=== PATIENT | male | born 1945 | race Caucasian/White ===

== ENCOUNTER 2023-07-28 12:46 | Inpatient (IN) ==
--- NOTE | 2023-07-28 13:14 | Emergency Department Note ---
History of Present Illness General Chief complaint: Dental/Oral Stated complaint: MOUTH INFECTION, REF BY DOC Time Seen by Provider: 07/28/23 12:54 History of Present Illness Maximum Pain Intensity: 10 This is a 78-year-old male with a history of GI bleed, acid reflux presents to the emergency department via private vehicle accompanied by family with complaints of "mouth infection, referred by dentist". Patient notes that his dentist evaluated him today and referred him to the ED for evaluation by OMFS secondary to right lower mouth pain radiating to the face and neck area. There is concern for possibly an impacted/infected wisdom tooth. The patient notes in his current symptoms began this past Thursday. No trauma or injury. He does wear partial dental hardware. No fevers. Current pain 03/03. No known drug allergies. He did start taking amoxicillin yesterday. Home Medications Medication Instructions Recorded Confirmed Type atorvastatin 10 mg tablet 10 mg PO HS 07/28/23 07/28/23 History docusate sodium 100 mg tablet 100 mg PO DAILY 07/28/23 07/28/23 History finasteride 5 mg tablet 5 mg PO DAILY 07/28/23 07/28/23 History pantoprazole 40 mg tablet,delayed 40 mg PO DAILY PRN Constipation 07/28/23 07/28/23 History release Allergies Allergy/AdvReac Type Severity Reaction Status Date / Time No Known Allergies Allergy Verified 07/28/23 14:32 Past Med/Surg History Medical History GERD (gastroesophageal reflux disease) History of peptic ulcer BPH (benign prostatic hyperplasia) Surgical History Neck pain with history of cervical spinal surgery S/P appendectomy S/P cholecystectomy Family History Other Cancer Diabetes Denies family history of Clotting disorder Social History Smoking Status: Never smoker Preferred Language: O[place]i Feels Safe at Home: Yes Review of Systems A total of 10 systems reviewed and were otherwise negative Physical Exam Vital Signs Vital Signs - 24 hr 07/28/23 12:49 07/28/23 15:23 Temperature 36.7 C Temperature Source Temporal Artery Scan Pulse Rate 82 Pulse Rate [Right Finger] 88 Pulse Rhythm [Right Finger] Regular Pulse Strength [Right Finger] Normal Respiratory Rate 18 12 Respiratory Effort / Characteristics Non-Labored Spontaneous Non-Labored Respiratory Depth Normal Normal Blood Pressure 151/85 H Blood Pressure [Right Arm] 135/84 Blood Pressure Mean 107 Blood Pressure Mean [Right Arm] 101 Blood Pressure Position Sitting Pulse Oximetry 92 98 Oxygen Delivery Method Room Air Room Air Sepsis Recent Fever Within 48 Hours No Sepsis New/Unexplained Change in Mental Status No Sepsis Action Taken by Nursing No Action Required VITAL SIGNS - Vital signs and nursing notes were reviewed. Stable and afebrile. GENERAL -78-year-old male appearing his stated age who is in no acute distress. Communicates well with provider and answers questions appropriately. SKIN - Without rashes. HEAD - NC/AT. EYES - PERRL with EOMI bilaterally. Sclera anicteric. EARS - No deformities of external structures noted on gross examination bilaterally. NOSE - Midline and without cyanosis. No epistaxis or purulent drainage noted. MOUTH/OROPHARYNX - Without perioral cyanosis. Buccal mucosa pink and moist and without leukoplakia. Tongue midline with equal elevation of palate bilaterally. No tonsillar hypertrophy, erythema, or exudates noted. Partial dentition noted. There is edema to the intraoral mucosa on the right. There is tenderness overlying the right buccal region extending to the right anterior neck. There is soft tissue fullness noted in the same distribution. NECK - Neck with FROM. Supple to palpation. R anterior cervical lymphadenopathy noted. No nuchal rigidity. LUNGS -CTA CARDIAC - RRR EXTREMITIES +5/5 strength noted in UE/LE bilaterally. NEUROLOGIC - Cranial nerves grossly intact. PSYCH - A&O, and cooperates fully with examiner. Pt is very pleasant and interacts well with examiner. Course Administered Medications Acetaminophen (Acetaminophen 500 Mg Tab) 1,000 mg PO Q8 CIARRA Stop: 08/27/23 14:29 Last Admin: 07/28/23 15:18 Dose: Not Given Documented By: FLAKITO Discontinued Medications Ampicillin Sodium/Sulbactam Sodium 3,000 mg/ Sodium Chloride 100 mls @ 200 mls/hr IV NOW STA Stop: 07/28/23 14:58 Last Admin: 07/28/23 15:05 Dose: 200 mls/hr Documented By: KV Ioversol (Optiray 320 500ml) 92 ml IV ONCE ONE Stop: 07/28/23 14:38 Last Admin: 07/28/23 14:38 Dose: 92 ml Documented By: JT Oxycodone HCl (Oxycodone Hcl Ir 5 Mg Tab (Immediate Release)) 5 mg PO NOW STA Stop: 07/28/23 14:18 Last Admin: 07/28/23 14:46 Dose: 5 mg Documented By: CULLEN Medical Decision Making Laboratory Data 07/28/23 13:50 07/28/23 13:50 Lab Results 07/28/23 Range/Units 13:50 WBC 7.99 (4.8-10.8) K/ul RBC 4.79 (4.70-6.10) M/uL Hgb 14.8 (14.0-18.0) g/dl Hct 44.2 (42.0-52.0) % MCV 92.3 (80.0-100.0) fL MCH 30.9 (25.0-34.0) pg MCHC 33.5 (32.0-36.0) g/dL RDW Std Deviation 45.8 (36.4-46.3) fL RDW Coeff of Elmer 13.3 (11.5-14.5) % Plt Count 246 (130-400) K/uL MPV 10.4 (9.4-12.4) fL Immature Gran % (Auto) 0.3 % Neut % (Auto) 57.8 % Lymph % (Auto) 27.0 % [place] % (Auto) 10.4 % Eos % (Auto) 3.9 % Baso % (Auto) 0.6 % Neut # (Auto) 4.62 (1.40-6.50) K/uL Lymph # (Auto) 2.16 (1.20-3.40) K/uL [place] # (Auto) 0.83 H (0.11-0.59) K/uL Eos # (Auto) 0.31 (0.00-0.50) K/uL Baso # (Auto) 0.05 (0.00-0.20) K/uL Immature Gran # (Auto) 0.02 (0.01-0.20) K/uL Sodium 140 (136-145) mmol/L Potassium 3.8 (3.5-5.1) mmol/L Chloride 105 (98-107) mmol/L Carbon Dioxide 30 (21-32) mmol/L Anion Gap 5 (3-11) BUN 12 (6-23) mg/dl Creatinine 0.74 (0.6-1.4) mg/dl Est Cr Clr Drug Dosing 88.1 ml/min Est GFR ( Amer) 101.7 ml/min Est GFR (Non-Af Amer) 87.7 ml/min BUN/Creatinine Ratio 16.2 (10-20) Glucose 96 (70-99(Fasting)) mg/dl Calcium 9.2 (8.6-10.3) mg/dl Total Bilirubin 1.9 H (0.2-1.0) mg/dl AST 16 (13-39) U/L ALT 19 (7-52) U/L Alkaline Phosphatase 67 (34-104) U/L Total Protein 7.1 (6.0-8.3) gm/dl Albumin 4.0 (3.4-5.0) gm/dl Globulin 3.1 (2.5-4.0) gm/dl Albumin/Globulin Ratio 1.3 (0.9-2) Imaging Data Radiologist's Impression: Soft Tissue Neck CT 07/28/23 13:25 CT soft tissue neck w con CLINICAL HISTORY: R sided oral/facial/neck edema, pain Technique: Axial CT images of the soft tissues of the neck were obtained following intravenous administration of 100 cc of Omnipaque 300. Automated dose lowering techniques and/or adjustment according to patient size were utilized for this exam. Comparison: None available at the time of this dictation. Findings: There are no masses or inflammatory changes seen within the soft tissues of the neck. The oropharynx, hypopharynx, larynx, and trachea are patent. No enlarged lymph nodes are seen. The parotid glands, submandibular glands, and thyroid gland are unremarkable. Imaged portions of the brain parenchyma are unremarkable. The paranasal sinuses and mastoid air cells are normal in appearance. Impression: Mild subcutaneous edema in the right neck without drainable fluid collection or pk lymphadenopathy. ACT 112: Negative or not required by law. Electronically signed by: Juan Oreilly M.D. 07/28/2023 3:01 PM Chest X-Ray 07/28/23 13:30 XR chest 1V portable HISTORY: 78 years-old Male preop preoperative exam. No acute chest complaints COMPARISON: None TECHNIQUE: AP view the chest FINDINGS: Cardiomediastinal and hilar silhouettes are within normal limits. No pneumothorax, pleural effusion or overt pulmonary edema. Moderate hemidiaphragm elevation with bibasilar densities favoring atelectasis. Bones appear grossly intact. IMPRESSION: Mild right hemidiaphragm elevation with bibasilar atelectasis. ACT 112: Negative or not required by law. The above report was generated using voice recognition software. It may contain grammatical, syntax or spelling errors. Electronically signed by: Corona Grimm M.D. 07/28/2023 1:56 PM MDM Narrative Patient was seen and evaluated as above in room D09. Review was performed of triage nursing notes and vital signs. No previous visits for review in the EMR at time of evaluation after obtaining a thorough history and physical examination the above work up was performed. Patient presents to us today for evaluation of right-sided facial pain and swelling that is felt to be of dental origin. He saw his dentist today and was referred here to see OMFS. On evaluation here in the ED the patient does have right-sided facial swelling consistent with infectious etiology. He is maintaining his airway. There is no drooling, stridor, trismus, wheezing or tripoding. Normal phonation. As I was exiting the room following initial evaluation Dr. Rico was already presenting to bedside to evaluate the patient. In discussing options with Dr. Rico as well as the patient plan at this time is admission to the hospital, IV antibiotics and likely surgical intervention to the suspected impacted and infected wisdom tooth on the right during his time here in the hospital. IV Unasyn was ordered. CT soft tissue neck w/ IV contrast was also ordered per discussion with Dr. Rico. Results of the CT scan as above. There is mild right subcutaneous edema in the neck without drainable fluid collection or pk lymphadenopathy. Chest x-ray was ordered as well as EKG on a preoperative basis. Chest x-ray reveals mild right hemidiaphragm elevation with bibasilar atelectasis. EKG reveals normal sinus rhythm with a right bundle branch block. QTc 477. QRS 146. No ST elevation on this rhythm tracing. At this time we will proceed with admission to the hospital. Case discussed with the hospitalist service. Please refer to further documentation regarding his stay. Labs reveal no leukocytosis or concerning anemia. No emergent metabolic disturbance. T. bili elevation at 1.9. GCS: 15 In the evaluation and treatment of this patient, the following differential diagnoses were considered: Periapical Abscess, Osteonecrosis of the Jaw, Dental Fracture, Dental Caries, Sabino's Angina, Vincent's Angina, Facial Cellulitis, among others. Impression & Plan Cellulitis of face, Dental infection, Right facial pain Discharge Plan Visit Data Chief Complaint: Dental/Oral Stated Complaint: MOUTH INFECTION, REF BY DOC ED Provider: Dhiraj Olmedo ED Midlevel Provider: Eliot Johnson Discharge Problem: Cellulitis of face, Dental infection, Right facial pain Patient Disposition: Admitted As Inpatient Condition: Good Forms Stand Alone Forms: My [facility] Prescriptions Prescriptions: No Action atorvastatin 10 mg Tablet 10 mg PO HS pantoprazole 40 mg Tablet,Delayed Release (Dr/Ec) 40 mg PO DAILY PRN (Reason: Constipation) docusate sodium 100 mg Tablet 100 mg PO DAILY finasteride 5 mg Tablet 5 mg PO DAILY Referrals Referrals: PCP,NO [Physician] -
--- NOTE | 2023-07-28 13:30 | History & Physical Report ---
Date of Service July 28, 2023 Assessment & Plan (1) Dental infection: Plan: This is a 78-year-old male with PMH of GERD, history of GI bleed 2/2 to peptic ulcer disease last year, h/o provoked DVT in RUE last year, BPH and other medical problems listed below who presents at the direction of his dentist for worsening mouth infection. Worsening pain and edema on R lower mouth pain radiating to face and neck No respiratory distress or SOB. Saturating at 98% on room air CT soft tissue mild subcutaneous edema in the right neck without drainable fluid collection or pk lymphadenopathy Dr. Rico saw in ED, recommending admission for IV abx, possible OR on , 07/29 Continue IV Unasyn, pain control, soft diet as tolerated Repeat CBC, BMP in AM (2) History of peptic ulcer: (3) GERD (gastroesophageal reflux disease): Plan: Continue PPI. Avoid naids as able in setting of GI bleed in 2022 (4) BPH (benign prostatic hyperplasia): Plan: Continue finasteride. Bladder scan PRN DVT Ppx: SQ heparin for now (should be held evening of 07/28 for possible OR 07/29) Code status: FULL PCP: Dr. Parra of [facility] Dispo: Admitted to [facility] Patient seen in collaboration with Dr. Jaramillo. Please see addendum. I spent a total of 60 minutes coordinating, documenting, and providing care for this patient excluding time spent in the performance of separately billed services. History of Present Illness Chief Complaint: dental infection Primary Care Provider: NO PCP This is a 78-year-old male with PMH of GERD, history of GI bleed 2/2 to peptic ulcer disease last year, h/o provoked DVT in RUE last year, BPH and other medical problems listed below who presents at the direction of his dentist for worsening mouth infection. Patient drives a truck for living and noted worsening pain on the right lower side of his jaw this past Thursday evening. Pain was radiating from his lower molar to the side of his mouth and jaw. Patient called his dentist in [place] who prescribed amoxicillin, which she started yesterday. Pain and swelling continued to progress over the weekend and he was seen in person by his dentist today, who called Dr. Rico and was advised to send the patient to [facility] ED for further evaluation. Per ED provider, Dr. Rico evaluated patient already is recommending IV antibiotics with possible OR on . Patient has been taking some ibuprofen at home due to pain and swelling, which he tries to limit due to history of GI bleed. Pain is currently a 10/10 aching pain. Having some difficulty fully opening his mouth but denies any difficulty swallowing. Unable to chew hard foods due to current swelling and lack of dentition. Denies any shortness of breath. No recent known illness. No fever, chills, lightheadedness, headache, chest pain, shortness of breath, nausea, vomiting, abdominal pain, dysuria, diarrhea or constipation. Allergies Allergy/AdvReac Type Severity Reaction Status Date / Time No Known Allergies Allergy Verified 07/28/23 14:32 Home Medications Medication Instructions Recorded Confirmed Type atorvastatin 10 mg tablet 10 mg PO HS 07/28/23 07/28/23 History docusate sodium 100 mg tablet 100 mg PO DAILY 07/28/23 07/28/23 History finasteride 5 mg tablet 5 mg PO DAILY 07/28/23 07/28/23 History pantoprazole 40 mg tablet,delayed 40 mg PO DAILY PRN Constipation 07/28/23 07/28/23 History release Past Med/Surg History Medical History GERD (gastroesophageal reflux disease) History of peptic ulcer BPH (benign prostatic hyperplasia) Surgical History Neck pain with history of cervical spinal surgery S/P appendectomy S/P cholecystectomy Family History Other Cancer Diabetes Denies family history of Clotting disorder Social History Smoking Status: Never smoker Hx Alcohol Use: No Hx Substance Use: No Preferred Language: Bengali Communication Ability: Effective Stock Checker Required: No Beliefs That Will Affect Care: None Current Living Situation: Spouse and Family Feels Safe at Home: Yes Assistive Devices: None Review of Systems Review of Systems: At least ten systems reviewed and negative except as noted in the HPI. Physical Exam Physical Exam: General Appearance: WD/WN, vitals as above, NAD, sitting up in bed, pleasant, conversing easily Head: normocephalic, atraumatic Eyes: normal inspection, PERRL, conjunctivae normal, anicteric sclerae ENT: external ear and nose normal, + poor dentition, edema and TTP noted intraorally on R buccal region extending to R anterior neck Neck: normal visual inspection, trachea midline, no thyromegaly Respiratory: normal respiratory effort, lungs clear to auscultation, no wheeze, rales, rhonchi. No accessory muscle use Cardiovascular: regular rate, rhythm, no murmur, normal peripheral pulses, no BLE edema. Vessels: no JVD Chest: normal inspection of chest Abdomen/GI: normal bowel sounds, soft, nontender, no hepatosplenomegaly Extremities/Musculoskeletal: no cyanosis or clubbing, extremities motor strength 5/5 Neurologic: PERRL, EOMI, accommodation nl, no face palsy, no dysarthria, CN's II-XI intact bilaterally and moves all extremities Psychiatric: A+Ox3, euthymic affect Skin: no rashes, normal color, warm/dry Results & Data Results & Data Vital Signs (Past 12 Hours) Vital Signs Temp Pulse Resp BP Pulse Ox O2 Del Method 07/28/23 12:49 36.7 C 82 18 151/85 H 92 Room Air Laboratory Results Short CBC 07/28/23 Range/Units 13:50 WBC 7.99 (4.8-10.8) K/ul Hgb 14.8 (14.0-18.0) g/dl Hct 44.2 (42.0-52.0) % Plt Count 246 (130-400) K/uL BMP 07/28/23 13:50 Sodium 140 Potassium 3.8 Chloride 105 Carbon Dioxide 30 BUN 12 Creatinine 0.74 Glucose 96 Calcium 9.2 Liver Function 07/28/23 Range/Units 13:50 Total Bilirubin 1.9 H (0.2-1.0) mg/dl AST 16 (13-39) U/L ALT 19 (7-52) U/L Alkaline Phosphatase 67 (34-104) U/L Albumin 4.0 (3.4-5.0) gm/dl Diagnostic Findings Soft Tissue Neck CT 07/28/23 13:25 CT soft tissue neck w con CLINICAL HISTORY: R sided oral/facial/neck edema, pain Technique: Axial CT images of the soft tissues of the neck were obtained following intravenous administration of 100 cc of Omnipaque 300. Automated dose lowering techniques and/or adjustment according to patient size were utilized for this exam. Comparison: None available at the time of this dictation. Findings: There are no masses or inflammatory changes seen within the soft tissues of the neck. The oropharynx, hypopharynx, larynx, and trachea are patent. No enlarged lymph nodes are seen. The parotid glands, submandibular glands, and thyroid gland are unremarkable. Imaged portions of the brain parenchyma are unremarkable. The paranasal sinuses and mastoid air cells are normal in appearance. Impression: Mild subcutaneous edema in the right neck without drainable fluid collection or pk lymphadenopathy. ACT 112: Negative or not required by law. Electronically signed by: Juan Oreilly M.D. 07/28/2023 3:01 PM Chest X-Ray 07/28/23 13:30 XR chest 1V portable HISTORY: 78 years-old Male preop preoperative exam. No acute chest complaints COMPARISON: None TECHNIQUE: AP view the chest FINDINGS: Cardiomediastinal and hilar silhouettes are within normal limits. No pneumothorax, pleural effusion or overt pulmonary edema. Moderate hemidiaphragm elevation with bibasilar densities favoring atelectasis. Bones appear grossly intact. IMPRESSION: Mild right hemidiaphragm elevation with bibasilar atelectasis. ACT 112: Negative or not required by law. The above report was generated using voice recognition software. It may contain grammatical, syntax or spelling errors. Electronically signed by: Corona Grimm M.D. 07/28/2023 1:56 PM ECG Additional Comments: EKG reviewed, NSR with RBBB Supervising Physician Co-Signing Physician Notes Pt was seen and examined by myself, Jo Ann Jaramillo MD on the day of service. Care was coordinated with Jewell Pedraza PA-C. 78Tree who failed outpt po meds for a dental infection. On exam, alert and oriented, no acute distress. Vitals stable, no signs of sepsis. Able to open jaw, face tender to palaption on right. IV abx, pain control, further evaluation by oromax surgeon. Appreciate recs. Otherwise as above. I spent a total [id number] coordinating, documenting, and providing care for this patient excluding time spent in the performance of separately billed services
--- NOTE | 2023-07-28 13:57 | XRay Report ---
XR chest 1V portable HISTORY: 78 years-old Male preop preoperative exam. No acute chest complaints COMPARISON: None TECHNIQUE: AP view the chest FINDINGS: Cardiomediastinal and hilar silhouettes are within normal limits. No pneumothorax, pleural effusion o r overt pulmonary edema. Moderate hemidiaphragm elevation with bibasilar densities favoring atelectas is. Bones appear grossly intact. IMPRESSION: Mild right hemidiaphragm elevation with bibasilar atelectasis. ACT 112: Negative or not required by law. The above report was generated using voice recognition software. It may contain grammatical, syntax o r spelling errors. Electronically signed by: Corona Grimm M.D. 07/28/2023 1:56 PM
[2023-07-28 14:06] LABS: Basophils # (auto) 0.05 K/uL (0.00-0.20); Basophils % (auto) 0.6 %; Eosinophils # (auto) 0.31 K/uL (0.00-0.50); Eosinophils % (auto) 3.9 %; Hematocrit (blood only) 44.2 % (42.0-52.0); Hemoglobin 14.8 g/dl (14.0-18.0); Immature Granulocytes # (auto) 0.02 K/uL (0.01-0.20); Immature Granulocytes % (auto) 0.3 %; Lymphocytes # (auto) 2.16 K/uL (1.20-3.40); Mean Corpuscular Hemoglobin 30.9 pg (25.0-34.0); Mean Corpuscular Hgb Conc 33.5 g/dL (32.0-36.0); Mean Corpuscular Volume 92.3 fL (80.0-100.0); Mean Platelet Volume 10.4 fL (9.4-12.4); Monocytes # (auto) 0.83 K/uL (0.11-0.59); Monocytes % (auto) 10.4 %; Neutrophils # (auto) 4.62 K/uL (1.40-6.50); Neutrophils % (auto) 57.8 %; Platelet Count 246 K/uL (130-400); RDW Coefficient of Variation 13.3 % (11.5-14.5); RDW Standard Deviation 45.8 fL (36.4-46.3); Red Blood Count 4.79 M/uL (4.70-6.10); White Blood Count 7.99 K/ul (4.8-10.8)
[2023-07-28 14:23] LABS: Albumin Globulin Ratio 1.3 (0.9-2); BUN Creatinine Ratio 16.2 (10-20); Bilirubin,Total 1.9 mg/dl (0.2-1.0); Calcium 9.2 mg/dl (8.6-10.3); Creatinine Clr Calc Pharmacy 88.1 ml/min; Est GFR (African American) 101.7 ml/min; Est GFR (Non-African American) 87.7 ml/min; Globulin 3.1 gm/dl (2.5-4.0); Potassium 3.8 mmol/L (3.5-5.1); Total Protein 7.1 gm/dl (6.0-8.3)
[2023-07-28] MEDS: OPTIRAY 320 500ml IV ONE (14:38)
[2023-07-28] MEDS: ACETAMINOPHEN 500 MG TAB PO SCH (14:45)
[2023-07-28] MEDS: oxyCODONE HCL IR 5 MG TAB (IMMEDIATE RELEASE) PO STA (14:46)
--- NOTE | 2023-07-28 15:02 | CT Scan Report ---
CT soft tissue neck w con CLINICAL HISTORY: R sided oral/facial/neck edema, pain Technique: Axial CT images of the soft tissues of the neck were obtained following intravenous admini stration of 100 cc of Omnipaque 300. Automated dose lowering techniques and/or adjustment according t o patient size were utilized for this exam. Comparison: None available at the time of this dictation. Findings: There are no masses or inflammatory changes seen within the soft tissues of the neck. The oropharynx, hypopharynx, larynx, and trachea are patent. No enlarged lymph nodes are seen. The parotid glands, s ubmandibular glands, and thyroid gland are unremarkable. Imaged portions of the brain parenchyma are unremarkable. The paranasal sinuses and mastoid air cell s are normal in appearance. Impression: Mild subcutaneous edema in the right neck without drainable fluid collection or pk lymphadenopathy . ACT 112: Negative or not required by law. Electronically signed by: Juan Oreilly M.D. 07/28/2023 3:01 PM
[2023-07-28] MEDS: AMPICILLIN/SULBACTAM SOD 3,000 MG in SODIUM CHLOR 0.9% MINI-B 100 ML IV STA (15:05)
--- NOTE | 2023-07-28 15:07 | Electrocardiogram Report ---
Test Reason : Blood Pressure : / mmHG Vent. Rate : 076 BPM Atrial Rate : 076 BPM P-R Int : 160 ms QRS Dur : 146 ms QT Int : 424 ms P-R-T Axes : 041 081 029 degrees QTc Int : 477 ms Normal sinus rhythm Right bundle branch block Abnormal ECG No previous ECGs available Confirmed by Slaav Newton ([id number]) on 07/28/2023 3:07:25 PM Referred By: REFERRED SELF Confirmed By:Slava Newton
[2023-07-28] MEDS ORDERED: ONDANSETRON INJ 2 MG/ML 2 ML VIAL IV PRN (16:03)
[2023-07-28] MEDS ORDERED: POLYETHYLENE (MIRALAX) 17 GM PACK PO PRN (16:03)
[2023-07-28] MEDS ORDERED: PANTOprazole 40 MG TAB PO PRN (16:03)
[2023-07-28] MEDS ORDERED: DOCUSATE SODIUM 100 MG CAP PO PRN (16:07)
[2023-07-28] MEDS: traMADol HCL 50 MG TABLET PO PRN (17:54)
--- NOTE | 2023-07-28 18:13 | Oral/Maxillofacial Consult ---
Date of Consultation July 28, 2023 Assessment & Plan (1) Dental infection: (2) Impacted third molar tooth: (3) Gum abscess: (4) Submandibular abscess: (5) Trismus: History of Present Illness Reason for Consultation: acute facial pain/swelling right side Attending Physician: Jo Ann Jaramillo MD History of Present Illness Oral Maxillofacial Surgery Exam in ER Present Complaint: I have pain/swelling/drainage from my infected wisdom teeth # 32 Symptoms have been ongoing for a while--pain and swelling started July 23, getting worse not able to open mouth. Was prescribed amoxicillin by Dr Nunn (dentist) no improvement --pain,swelling worse. Dr Nunn evaluated to --not able to open mouth---he was able to remove the partial denture but not able to obtain X Rays. Patient not able to eat since Thursday. Hard lump in the right cheek and mucobuccal fold Oral Exam: Finding--Very limited opening there is P-cor associated with the impacted teeth, tender gingival tissue, boggy soft tissue with posterior ridge expansion # 32 is in a very abnormal position and removal is clinical indicated. Imaging: The radiologist did not report on the pathology in the lower right jaw. The CT scan was reviewed by me , there were no abnormal findings other then the impacted/malposed wisdom tooth, noted right neck edema, radiolucent area surround the impacted tooth, the cortical bone plate in the tongue side is broken which is the etiology of the current infection in the floor of the mouth and submandibular area. The TMJ are well positioned and no evidence of bony pathology. The sinus, supporting bone all WNL Evaluated the nerve/sinus relationship to the roots of the impacted # 32. The maxilla is very atrophic. The following teeth were impacted #32 Soft tissue: The floor of the mouth right side is swollen, the mandibular space is swollen which accounts for the trismus. The tongue, hard/soft palate, posterior pharyngeal area all with in normal limits, no pathology or abnormal findings noted. No lesions noted that require follow up or Bx. Oral Care: Overall oral care is good -atrophic upper jaw, a few teeth remain in the lower TMJ exam: no able to examine due to limited opening secondary to infection Head/Neck exam: Neck is supple, FROM, Able to extend and flex neck w/o difficulty, no airway issues, no evidence of sleep apnea. There is a mass secondary to the current facial infection , no other abnormalities Treatment Plan: Admission to medical for IV therapy, soft diet, pain control, IV antibiotics. Failed out patient management of the facial infection Set up with general anesthesia in hospital due to complexity of the procedure of draining the subperiosteal infection and removal of the difficult horizontally impacted wisdom tooth #32. I reviewed the treatment plan and consent with the patient, his and daughter, I will evaluate Umberto tomorrow AM and determine if he is ready to have the infection drained and the grossly abscessed impacted # 32 removed tomorrow vs . Understanding was expressed. Time was given for questions regarding the surgery, risks and post op care. Discussed alternative to treatment--procedure as planned as there are no options as I&D and removal of # 32 are necessary The wisdom tooth # 32 is impacted and in an abnormal position, removal is indicated and medically necessary. Risks discussed: Bleeding,Pain,swelling,infection, dry socket, delayed healing, nerve injury to face,lips,tongue,chin area which could be permanent (rare). TMJ, jaw stiffness, change in bite (rare), ear pain (referred). Sinus problems like fistula or infection. Need to leave a small root fragment in place to avoid injury to nerve or sinus. Relationship of wisdom teeth to nerve/sinus and risk of jaw fracture. Home care reviewed: tooth brushing, rinsing, follow up care with Dr Rico. diet=[id number] dental. Discussed activity level, driving/work while on Rx pain Meds. Surgery to be set up once July 29 or in OR. Allergies Allergy/AdvReac Type Severity Reaction Status Date / Time No Known Allergies Allergy Verified 07/28/23 14:32 Home Medications Medication Instructions Recorded Confirmed Type atorvastatin 10 mg tablet 10 mg PO HS 07/28/23 07/28/23 History docusate sodium 100 mg tablet 100 mg PO DAILY 07/28/23 07/28/23 History finasteride 5 mg tablet 5 mg PO DAILY 07/28/23 07/28/23 History pantoprazole 40 mg tablet,delayed 40 mg PO DAILY PRN Constipation 07/28/23 07/28/23 History release Patient History Medical History GERD (gastroesophageal reflux disease) History of peptic ulcer BPH (benign prostatic hyperplasia) Surgical History Neck pain with history of cervical spinal surgery S/P appendectomy S/P cholecystectomy Family History Other Cancer Diabetes Denies family history of Clotting disorder Social History Smoking Status: Never smoker Hx Alcohol Use: No Hx Substance Use: No Preferred Language: Greek Communication Ability: Effective Material Expeditor Required: No Beliefs That Will Affect Care: None Current Living Situation: Spouse and Family Other Information That Helps Us Care for You: No Feels Safe at Home: Yes Safety Concerns: Feels Safe At This Time Assistive Devices: Denture - Upper, Denture - Lower, Glasses and Hearing Aid - Bilateral Review of Systems Review of Systems: General Appearance: WD/WN, vitals as above, NAD, sitting up in bed, pleasant, conversing easily Head: normocephalic, atraumatic Eyes: normal inspection, PERRL, conjunctivae normal, anicteric sclerae ENT: external ear and nose normal, + poor dentition, edema and TTP noted intraorally on R buccal region extending to R anterior neck Neck: normal visual inspection, trachea midline, no thyromegaly Respiratory: normal respiratory effort, lungs clear to auscultation, no wheeze, rales, rhonchi. No accessory muscle use Cardiovascular: regular rate, rhythm, no murmur, normal peripheral pulses, no BLE edema. Vessels: no JVD Chest: normal inspection of chest Abdomen/GI: normal bowel sounds, soft, nontender, no hepatosplenomegaly Extremities/Musculoskeletal: no cyanosis or clubbing, extremities motor strength 5/5 Neurologic: PERRL, EOMI, accommodation nl, no face palsy, no dysarthria, CN's II-XI intact bilaterally and moves all extremities Psychiatric: A+Ox3, euthymic affect Skin: no rashes, normal color, warm/dry Results & Data Vital Signs (Past 12 Hours) Vital Signs Temp Pulse Pulse Resp BP BP Pulse Ox 07/28/23 16:09 37.1 C 84 18 141/91 H 95 07/28/23 15:42 85 03/05/24 15:23 88 12 135/84 98 07/28/23 12:49 36.7 C 82 18 151/85 H 92 O2 Del Method 07/28/23 16:09 Room Air 07/28/23 15:42 07/28/23 15:23 Room Air 07/28/23 12:49 Room Air PG Care Time/CCT Total # of Minutes Spent Total Time Spent with Patient: Total time spent is greater than 50% in coordination of care (as documented) at patient's floor/unit and/or counseling patient: Coding Level of Care Code 65740 OFFICE CONSULT LVL Diagnoses Dental infection K04.7 Impacted third molar tooth K01.1 Gum abscess K05.219 Submandibular abscess K12.2 Trismus R25.2
[2023-07-28] MEDS: HYDROmorphone INJ 0.5 MG/0.5 ML SYR IV PRN (19:33)
[2023-07-28] MEDS: AMPICILLIN/SULBACTAM SOD 3,000 MG in SODIUM CHLOR 0.9% MINI-B 100 ML IV SCH (21:59)
[2023-07-28] MEDS: ATORVASTATIN 10 MG TAB PO SCH (21:59)
[2023-07-28] MEDS: HEPARIN SOD 5,000 UNIT/0.5 ML VIAL SQ SCH (21:59)
[2023-07-29 06:30] LABS: BUN Creatinine Ratio 18.8 (10-20); Calcium 8.9 mg/dl (8.6-10.3); Creatinine Clr Calc Pharmacy 70.5 ml/min; Est GFR (African American) 96.1 ml/min; Est GFR (Non-African American) 82.9 ml/min
[2023-07-29 06:41] LABS: Hematocrit (blood only) 39.3 % (42.0-52.0); Hemoglobin 13.6 g/dl (14.0-18.0); Mean Corpuscular Hemoglobin 31.1 pg (25.0-34.0); Mean Corpuscular Hgb Conc 34.6 g/dL (32.0-36.0); Mean Corpuscular Volume 89.7 fL (80.0-100.0); Mean Platelet Volume 10.9 fL (9.4-12.4); Platelet Count 244 K/uL (130-400); RDW Coefficient of Variation 13.2 % (11.5-14.5); RDW Standard Deviation 43.8 fL (36.4-46.3); Red Blood Count 4.38 M/uL (4.70-6.10); White Blood Count 6.43 K/ul (4.8-10.8)
[2023-07-29] MEDS: FINASTERIDE 5 MG TAB PO SCH (08:08)
--- NOTE | 2023-07-29 09:41 | Oral/Maxillofacial Progress Nt ---
Date of Service July 29, 2023 Assessment & Plan Admission and Anticipated Discharge Date Admission Date: July 28, 2023 Subjective Pain, swelling and drainage I visited Umberto in room 289--he is still is Pain with swelling and now is starting to drain pus I&D will be set up KHOI this afternoon in OR with GA Treatment Plan Set up with general anesthesia in hospital this afternoon I&D right mandibular space abscess and removal of the impacted # 32 Consent signed NPO No medical issues noted I reviewed the treatment plan and consent with Umberto Understanding was expressed. Time was given for questions regarding the surgery, risks and post op care. Discussed alternative to treatment--NONE I&D and tooth removal medically necessary--MUST DO BOTH The wisdom #32 impacted wisdom tooth and infection I&D and removal is indicated and medically necessary. Risks discussed: Bleeding,Pain,swelling,infection, dry socket, delayed healing, nerve injury to face,lips,tongue,chin area which could be permanent (rare). TMJ, jaw stiffness, change in bite (rare), ear pain (referred). Sinus problems like fistula or infection. Need to leave a small root fragment in place to avoid injury to nerve or sinus. Relationship of wisdom teeth to nerve/sinus and risk of jaw fracture. Home care reviewed: follow up care with Dr Rico. diet=[id number] dental. Discussed activity level, driving/work while on Rx pain Meds. Surgery to be set up this afternoon NPO Results & Data Vital Signs (Past 12 Hours) Vital Signs Temp Pulse Pulse Resp BP Pulse Ox O2 Del Method 07/29/23 07:49 36.8 C 77 18 129/83 94 Room Air 07/29/23 05:58 63 07/29/23 04:06 36.6 C 71 20 121/77 93 Room Air 07/28/23 23:34 36.9 C 81 20 122/79 93 Room Air 07/28/23 22:40 87 PG Care Time/CCT Total # of Minutes Spent Total Time Spent with Patient: Total time spent is greater than 50% in coordination of care (as documented) at patient's floor/unit and/or counseling patient: Coding Level of Care Code None
--- NOTE | 2023-07-29 10:29 | Anesthesiology Consultation ---
Date of Service July 29, 2023 Assessment & Plan (1) Encounter for pre-operative examination: Chart Review Chart Review: Acceptable Risk for Surgery and Patient NOT seen in Pre Admission Testing Consults Requested none History Surgery Operation Date: 07/29/23 07:00 Proposed Procedures p Right Incision and Drainage, Tooth Removal x1 - Shabbir Rico, DMD Height/Weight Height: 5 ft 9 in Weight: 84 kg Allergies Allergy/AdvReac Type Severity Reaction Status Date / Time No Known Allergies Allergy Verified 07/28/23 14:32 Medications Home Medications Medication Instructions Recorded Confirmed Last Taken atorvastatin 10 mg tablet 10 mg PO HS 07/28/23 07/28/23 Unknown docusate sodium 100 mg tablet 100 mg PO DAILY 07/28/23 07/28/23 Unknown finasteride 5 mg tablet 5 mg PO DAILY 07/28/23 07/28/23 Unknown pantoprazole 40 mg tablet,delayed 40 mg PO DAILY PRN Constipation 07/28/23 07/28/23 Unknown release Active Medications Generic Name Dose Route Start Last Admin Trade Name Freq PRN Reason Stop Dose Admin Acetaminophen 1,000 mg 07/28/23 14:30 07/29/23 05:07 Acetaminophen 500 Mg Tab PO 08/27/23 14:29 1,000 mg Q8 CIARRA Administration Atorvastatin Calcium 10 mg 07/28/23 21:00 07/28/23 21:59 Atorvastatin 10 Mg Tab PO 08/27/23 20:59 10 mg HS CIARRA Administration Finasteride 5 mg 07/29/23 09:00 07/29/23 08:08 Finasteride 5 Mg Tab PO 08/28/23 08:59 Not Given DAILY CIARRA Heparin Sodium (Porcine) 5,000 units 07/28/23 22:00 07/29/23 05:14 Heparin Sod 5,000 Unit/0.5 Ml Vial SQ 08/27/23 21:59 5,000 units Q8 CIARRA Administration Hydromorphone HCl 0.25 mg 07/28/23 18:01 07/28/23 19:33 Hydromorphone Inj 0.5 Mg/0.5 Ml Syr IV 08/11/23 18:00 0.25 mg Q6H PRN Administration Mod-Sev Pain (Scale 4-10) Ampicillin Sodium/Sulbactam 100 mls @ 100 mls/hr 07/28/23 21:00 07/29/23 09:11 Sodium 3,000 mg/ Sodium IV 08/07/23 20:59 Infused Chloride Q6H CIARRA Infusion Tramadol HCl 50 mg 07/28/23 16:03 07/28/23 17:54 Tramadol Hcl 50 Mg Tablet PO 08/27/23 16:02 50 mg Q4H PRN Administration Severe Pain (Scale 7, 8, 9,10) Past Medical History Medical History GERD (gastroesophageal reflux disease) History of peptic ulcer BPH (benign prostatic hyperplasia) Past Family History Family History Other Cancer Diabetes Denies family history of Clotting disorder Past Surgical History Surgical History Neck pain with history of cervical spinal surgery S/P appendectomy S/P cholecystectomy Social History Smoking Status: Never smoker Hx Alcohol Use: No Hx Substance Use: No Physical Exam Vital Signs Last Vital Signs Temp 98.2 F 07/29/23 07:49 Pulse 77 07/29/23 07:49 Resp 18 07/29/23 07:49 BP 129/83 07/29/23 07:49 Pulse Ox 94 07/29/23 07:49 O2 Del Method Room Air 07/29/23 07:49 Testing Laboratory Results 07/29/23 05:36 07/29/23 05:36 Electrocardiogram Date: 07/28/23 Findings: + NSR @ and + RBBB
--- NOTE | 2023-07-29 11:42 | Hospitalist Progress Note ---
Date of Service July 29, 2023 Assessment & Plan (1) Dental infection: (2) History of peptic ulcer: (3) GERD (gastroesophageal reflux disease): (4) BPH (benign prostatic hyperplasia): Plan This is a 78-year-old male with PMH significant for GERD, history of GI bleed 2/2 to peptic ulcer disease last year, h/o provoked DVT in RUE last year, BPH who presents at the direction of his dentist for worsening mouth infection. Dental Abscess Worsening pain and edema on R lower mouth pain radiating to face and neck No respiratory distress or SOB. Saturating at 98% on room air CT soft tissue mild subcutaneous edema in the right neck without drainable fluid collection or pk lymphadenopathy Dr. Rico saw in ED, recommending admission for IV abx -s/p I&D right mandibular space abscess and removal of the impacted # 32 on 07/29 Continue IV Unasyn, pain control, soft diet as tolerated Monitoring overnight Anemia hgb decreased slightly from 14.8 to 13.6 Continue to monitor with AM labs Hyperglycemia Pending AM [id number] Elevated bilirubin t bili of 1.9 Trend with CMP History of peptic ulcer GERD (gastroesophageal reflux disease) Continue PPI. Avoid nsaids as able in setting of GI bleed in 2022 BPH (benign prostatic hyperplasia) Continue finasteride. Bladder scan PRN DVT Ppx: SQ heparin Code status: FULL PCP: Dr. Parra of [facility] Dispo: Home post op Admission and Anticipated Discharge Date Admission Date: July 28, 2023 Subjective Pt was seen laying in bed. In pain, states that he was seen by oromax surgeon and plans for surgery moved up. Otherwise denied concerns, playing games on his phone. Review of Systems Review of Systems: All systems reviewed & are unremarkable except as noted in Subjective Physical Exam Physical Exam: General: Alert, oriented. No acute distress Skin: No noted rashes or bruises Psych: Appropriate mood and affect Neuro: No gross deficits HEENT: NC/AT, tender to palpation of right cheek area Chest: Nontender to palpation. CV: RRR Resp: Breath sounds clear bilaterally, no increased effort of breathing. Abdomen: Soft, nontender, nondistended. Extremities: No edema in lower extremities bilaterally. Results & Data Results & Data Vital Signs (Past 12 Hours) Vital Signs Temp Pulse Pulse Resp BP Pulse Ox O2 Del Method 07/29/23 07:49 36.8 C 77 18 129/83 94 Room Air 07/29/23 05:58 63 07/29/23 04:06 36.6 C 71 20 121/77 93 Room Air
[2023-07-29] MEDS ORDERED: ePHEDrine sulfate 50 MG/ML AMP IV PRN (16:55)
[2023-07-29] MEDS ORDERED: ATROPINE SULFATE 0.1 MG/ML 10ML SYR IV PRN (16:55)
[2023-07-29] MEDS ORDERED: DEXAMETHASONE SOD INJ 4 MG/ML VIAL ONE (16:57)
[2023-07-29] MEDS ORDERED: LIDOCAINE 2% 2 ML VIAL/AMP(20MG/ML) INFIL ONE (16:57)
[2023-07-29] MEDS ORDERED: ROCURONIUM BROMIDE 10 MG/ML 5 ML VIAL IV ONE (16:57)
[2023-07-29] MEDS ORDERED: PROPOFOL IV EMULSION 10 MG/ML 20 ML VIAL IV ONE (16:57)
[2023-07-29] MEDS ORDERED: ONDANSETRON INJ 2 MG/ML 2 ML VIAL ONE (16:57)
[2023-07-29] MEDS ORDERED: MIDAZOLAM HCL 1 MG/ML 2ML VIAL ONE (16:58)
[2023-07-29] MEDS ORDERED: fentaNYL citrate PF 100 MCG/2 ML VIAL ONE (16:58)
--- NOTE | 2023-07-29 16:59 | History & Physical Bridge Note ---
Date of Service July 29, 2023 History & Physical Bridge Note I have examined the patient, reviewed the History & Physical and in the interval since the performance of the History & Physical I have noted the following changes of clinical significance: no changes noted OK for the planned procedure--I&D and removal of # 32 (right)
[2023-07-29] MEDS: CHLORHEXIDINE GLUCONATE 0.12% 480 ML MT PRN (17:58)
[2023-07-29] MEDS: SURGICEL ABSORB HEMOSTAT 2IN X 14IN TOP ONE (17:59)
[2023-07-29] MEDS ORDERED: GLYCOPYRROLATE 0.2 MG/ML VIAL ONE (18:13)
[2023-07-29] MEDS ORDERED: NEOSTIGMINE METHYLSULFATE 1 MG/ML 10ML VIAL ONE (18:13)
[2023-07-29] MEDS: fentaNYL citrate PF 100 MCG/2 ML VIAL IV PRN (18:30)
--- NOTE | 2023-07-29 18:39 | Operative Report ---
PG Post Operative Report Pre & Post Diagnosis Operation Date: 07/29/23 07:00 <No data on this case meets the specified criteria> I identified the patient and participated in the time-out.: Yes Procedure Operation Date: 07/29/23 07:00 <No data on this case meets the specified criteria> Surgeon Shabbir Rico DMD Manager Food Safety none Estimated Blood Loss 5 Findings Consistent with Post-Op Diagnosis acute infection mandibular space infection, infected # 32 with cyst and infected tissue surrounding the tooth Specimens C&S from mandibular space abscess Cystic and granulation tissue associated with # 32 Anesthesia Type General Complications none Disposition Accompanied Patient To Recovery: Yes Description of Procedure Actual Procedures p Incision and Drainage mandibular space Right side Abscess; Removal of impacted Tooth #32(Not Applicable) - Shabbir Rico DMD Dental infection K04.7 Impacted third molar tooth K01.1 Gum abscess K05.219 Submandibular abscess K12.2 Trismus R25.2 CPT 96979 Incision and Drainage right acute infection mandibular space infection/masticatory space D7240 Removal of deep impacted infected retained wisdom tooth # 32 Once cleared for surgery general anesthesia was achieved, the eyes were protected by the anesthesia dept criteria. A time out was take for patient ID, antibiotics, equipment and position verification once all agreed the procedure began. Local anesthesia using Marcaine with a vasoconstrictor ( 1.8 ml per site) given into right inferior alveolar nerve A throat pack was placed after the oral cavity was irrigated with saline. Once a surgical level of anesthesia was obtained and the local anesthesia was given time for the blocks the surgery was started. I turned my attention to the infection which was located in the floor of the mouth, subperiosteal area and mandibular space area. There was swelling associated with the impacted tooth # 32 Incision and Drainage right acute infection mandibular space infection Using a 15 blade an incision was made on right the alveolar ridge and lateral to the duct of the submandibular gland and lingual nerve. Once the incision was made a lot of pus extruded from the site. This drainage was cultured for anaerobic and aerobic bacteria. A curved hemostat was carefully placed into the infected space along the medial side of the lower jaw and into the mandibular space. Some further drainage was now allowed to escape. I palpated the cheek and subperiosteal area and no further drainage was expressed. The area was irrigated with at least 100 ml of NS solution. I now turned my attention to remove the impacted and infected impacted wisdom tooth # 32. Difficult Lower wisdom teeth CBI # 32 infected # 32 with cyst and infected tissue surrounding the tooth (D7240 x 1) The patient is 78 years old and presented with a horizontal impacted wisdom tooth with internal resorption. As a result the failing tooth caused a rather extensive oral facial infection, pain, swelling and trismus. This necessitated a hospital admission for IV antibiotics and subsequent removal of # 32. The full thick Muco-periosteal flap was retracted to expose the lingual plate of bone and the external oblique ridge to avoid the lingual nerve. The flap was reflected to expose the impacted tooth. The tooth was horizontally impacted with a lot of infected cyst like material and granulation tissue surrounding the exposed sections of the tooth. This soft tissue was curetted and sent of pathology. The drill with a round bur was used to remove bone, a fissure bur was used to split the tooth.The lingual plate was protected. The tooth was removed with a 301 elevator, the nerve was intact, there was no bleeding. The bone was trimmed, smoothed and the large flap was closed with a 2-0 chromic sutures. When all the # 32 wisdom teeth was removed I inspected the sites to insure all bleeding was controlled. I removed the throat pack and suctioned the throat. A gauze pressure dressings was placed. All instrument and sponge count was correct. The patient was allowed to awake from the anesthesia. Once full awake the anesthesia tube was removed and the patient was taken to the recovery room with all vital sign stable. The patient tolerated the surgery very well. I will follow the patient while in the hospital and then once discharged in my office, Rx and instructions will be given upon discharge. I attest to the content of the Intraoperative Record and any orders documented therein. Any exceptions are noted below.
[2023-07-29] MEDS: ONDANSETRON INJ 2 MG/ML 2 ML VIAL IV PRN (18:57)
[2023-07-29] MEDS: KETOROLAC TROMETHAMINE 15 MG/ML VIAL IV ONE ×2 (18:58→21:06)
[2023-07-29] MEDS: ACETAMINOPHEN 1,000 MG/100 ML VIAL IV STA (18:58)
[2023-07-29] MEDS: KETOROLAC 30 MG/ML VIAL ONE (19:08)
--- NOTE | 2023-07-29 19:09 | Anesthesiology Progress Note ---
Date of Service July 29, 2023 Anesthesia Post Procedure Vital Signs Vital Signs: Temp Pulse Pulse Pulse Resp BP Pulse Ox 07/29/23 18:55 91 H 24 164/95 H 97 07/29/23 18:45 71 15 158/99 H 96 07/29/23 18:35 84 21 160/95 H 96 07/29/23 18:25 36.4 C L 88 16 135/96 97 07/29/23 16:29 37.3 C 83 15 145/89 H 96 07/29/23 15:54 36.6 C 87 18 122/81 98 07/29/23 14:01 86 07/29/23 12:02 36.8 C 71 18 130/84 91 07/29/23 07:49 36.8 C 77 18 129/83 94 07/29/23 05:58 63 07/29/23 04:06 36.6 C 71 20 121/77 93 07/28/23 23:34 36.9 C 81 20 122/79 93 07/28/23 22:40 87 07/28/23 20:15 36.9 C 83 20 133/80 93 O2 Del Method O2 Flow Rate 07/29/23 18:55 Nasal Cannula 2 07/29/23 18:45 Nasal Cannula 2 07/29/23 18:35 Nasal Cannula 2 07/29/23 18:25 Nasal Cannula 2 07/29/23 16:29 Room Air 07/29/23 15:54 Room Air 07/29/23 14:01 07/29/23 12:02 Room Air 07/29/23 07:49 Room Air 07/29/23 05:58 07/29/23 04:06 Room Air 07/28/23 23:34 Room Air 07/28/23 22:40 07/28/23 20:15 Room Air Pain Intensity Right Lateral Neck: Pain Intensity: 10 Right Jaw: Pain Intensity: 10 Transfer of Care Handoff Completed per policy Notes Mental Status: alert / awake / arousable Patient Amnestic to Procedure: Yes Nausea / Vomiting: adequately controlled Pain: adequately controlled Airway Patency, RR, SpO2: stable & adequate BP & HR: stable & adequate Hydration State: stable & adequate Anesthetic Complications: no major complications apparent and Pt Satisfied with anesthetic care
[2023-07-29] MEDS: BUPIVACAINE/EPINEPHRINE 0.5% 1:200,000 1.8 ML CARP ONE (19:47)
[2023-07-30] MEDS: ACETAMINOPHEN 1,000 MG/100 ML VIAL IV PRN (05:12)
[2023-07-30 06:04] LABS: Basophils # (auto) 0.01 K/uL (0.00-0.20); Basophils % (auto) 0.1 %; Eosinophils # (auto) 0.01 K/uL (0.00-0.50); Eosinophils % (auto) 0.1 %; Hematocrit (blood only) 42.4 % (42.0-52.0); Hemoglobin 14.4 g/dl (14.0-18.0); Immature Granulocytes # (auto) 0.04 K/uL (0.01-0.20); Immature Granulocytes % (auto) 0.5 %; Lymphocytes % (auto) 8.4 %; Mean Corpuscular Hemoglobin 31.2 pg (25.0-34.0); Mean Corpuscular Volume 91.8 fL (80.0-100.0); Mean Platelet Volume 10.5 fL (9.4-12.4); Monocytes # (auto) 0.48 K/uL (0.11-0.59); Monocytes % (auto) 5.8 %; Neutrophils # (auto) 7.09 K/uL (1.40-6.50); Neutrophils % (auto) 85.1 %; Platelet Count 281 K/uL (130-400); RDW Standard Deviation 43.6 fL (36.4-46.3); Red Blood Count 4.62 M/uL (4.70-6.10); White Blood Count 8.33 K/ul (4.8-10.8)
[2023-07-30 06:20] LABS: Albumin Globulin Ratio 1.2 (0.9-2); Albumin Level 3.5 gm/dl (3.4-5.0); BUN Creatinine Ratio 20.4 (10-20); Bilirubin,Total 1.1 mg/dl (0.2-1.0); Calcium 9.1 mg/dl (8.6-10.3); Creatinine Clr Calc Pharmacy 61.1 ml/min; Est GFR (African American) 84.6 ml/min; Globulin 2.9 gm/dl (2.5-4.0); Phosphorus 3.8 mg/dl (2.5-4.9); Potassium 4.2 mmol/L (3.5-5.1); Total Protein 6.4 gm/dl (6.0-8.3)
[2023-07-30 07:01] LABS: Estimated Average Glucose 131 mg/dl; Hemoglobin A1C 6.2 % (4.5-5.6)
--- NOTE | 2023-07-30 15:41 | Oral/Maxillofacial Progress Nt ---
Date of Service July 30, 2023 Assessment & Plan Admission and Anticipated Discharge Date Admission Date: July 28, 2023 Subjective POST OP NOTE at 24 hours The patient did very well post operatively, minimal swelling, no drainage. Surgical and I&D site look good Tissue tone =healthy normal tissue No sinus or nerve complications noted Excellent ROM Sutures in place. Still very uncomfortable and in pain--I feel that this will slowly subside over the next 24-36 hours. Suggest massage and good oral care. Reviewed oral care Reviewed diet, massage, exercise and continued home/oral care I feel that Umberto can be discharged tomorrow morning on Augmentin and Pain Meds I will see him in my office in 10-14 day for follow up. August 12 at 11 am Great response from recent I&D and oral surgery Results & Data Vital Signs (Past 12 Hours) Vital Signs Temp Pulse Pulse Resp BP BP Pulse Ox 07/30/23 15:19 81 07/30/23 11:57 36.8 C 109 H 18 154/86 H 95 07/30/23 08:07 36.7 C 87 18 121/73 91 07/30/23 06:02 88 07/30/23 03:41 36.7 C 86 18 114/75 91 O2 Del Method 07/30/23 15:19 07/30/23 11:57 Room Air 07/30/23 08:07 Room Air 07/30/23 06:02 07/30/23 03:41 Room Air PG Care Time/CCT Total # of Minutes Spent Total Time Spent with Patient: Total time spent is greater than 50% in coordination of care (as documented) at patient's floor/unit and/or counseling patient: Coding Level of Care Code None
--- NOTE | 2023-07-30 22:38 | Hospitalist Progress Note ---
Date of Service July 30, 2023 Assessment & Plan (1) Dental infection: (2) History of peptic ulcer: (3) GERD (gastroesophageal reflux disease): (4) BPH (benign prostatic hyperplasia): Plan This is a 78-year-old male with PMH significant for GERD, history of GI bleed 2/2 to peptic ulcer disease last year, h/o provoked DVT in RUE last year, BPH who presents at the direction of his dentist for worsening mouth infection. Dental Abscess Worsening pain and edema on R lower mouth pain radiating to face and neck No respiratory distress or SOB. Saturating at 98% on room air CT soft tissue mild subcutaneous edema in the right neck without drainable fluid collection or pk lymphadenopathy Dr. Rico saw in ED, recommending admission for IV abx -s/p I&D right mandibular space abscess and removal of the impacted # 32 on 07/29 Continue IV Unasyn, pain control, soft diet as tolerated Monitoring overnight Anemia hgb decreased slightly from 14.8 to 13.6 Continue to monitor with AM labs Currently wnl Hyperglycemia hgba1c 6.2, dx of prediabetes PCP followup Elevated bilirubin t bili of 1.9 Trend with CMP Stable History of peptic ulcer GERD (gastroesophageal reflux disease) Continue PPI. Avoid nsaids as able in setting of GI bleed in 2022 BPH (benign prostatic hyperplasia) Continue finasteride. Bladder scan PRN DVT Ppx: SQ heparin Code status: FULL PCP: [facility] Parra of [facility] Dispo: Home post op Admission and Anticipated Discharge Date Admission Date: July 28, 2023 Subjective pt was seen in the AM. Stated he felt "high" on the tramadol Needed to walk despite this sensation. Pt concerned. Review of Systems Review of Systems: All systems reviewed & are unremarkable except as noted in Subjective Physical Exam Physical Exam: General: Alert, oriented. No acute distress Skin: No noted rashes or bruises Psych: Appropriate mood and affect Neuro: No gross deficits HEENT: NC/AT, tender to palpation of right cheek area Chest: Nontender to palpation. CV: RRR Resp: Breath sounds clear bilaterally, no increased effort of breathing. Abdomen: Soft, nontender, nondistended. Extremities: No edema in lower extremities bilaterally. Results & Data Results & Data Vital Signs (Past 12 Hours) Vital Signs Temp Pulse Pulse Resp BP BP Pulse Ox 07/30/23 16:00 36.7 C 88 18 159/95 H 94 07/30/23 15:19 81 07/30/23 11:57 36.8 C 109 H 18 154/86 H 95 07/30/23 08:07 36.7 C 87 18 121/73 91 07/30/23 06:02 88 O2 Del Method 07/30/23 16:00 Room Air 07/30/23 15:19 07/30/23 11:57 Room Air 07/30/23 08:07 Room Air 07/30/23 06:02
[2023-07-31] MEDS: cloNIDine HCL 0.1 MG TAB PO ONE (00:10)
[2023-07-31 07:37] LABS: Basophils # (auto) 0.05 K/uL (0.00-0.20); Basophils % (auto) 0.7 %; Eosinophils # (auto) 0.44 K/uL (0.00-0.50); Eosinophils % (auto) 6.4 %; Hematocrit (blood only) 37.3 % (42.0-52.0); Hemoglobin 12.5 g/dl (14.0-18.0); Immature Granulocytes # (auto) 0.03 K/uL (0.01-0.20); Immature Granulocytes % (auto) 0.4 %; Lymphocytes # (auto) 2.14 K/uL (1.20-3.40); Lymphocytes % (auto) 30.9 %; Mean Corpuscular Hemoglobin 31.1 pg (25.0-34.0); Mean Corpuscular Hgb Conc 33.5 g/dL (32.0-36.0); Mean Corpuscular Volume 92.8 fL (80.0-100.0); Mean Platelet Volume 10.2 fL (9.4-12.4); Monocytes # (auto) 0.68 K/uL (0.11-0.59); Monocytes % (auto) 9.8 %; Neutrophils # (auto) 3.58 K/uL (1.40-6.50); Neutrophils % (auto) 51.8 %; Platelet Count 235 K/uL (130-400); RDW Coefficient of Variation 13.3 % (11.5-14.5); RDW Standard Deviation 45.6 fL (36.4-46.3); Red Blood Count 4.02 M/uL (4.70-6.10); White Blood Count 6.92 K/ul (4.8-10.8)
[2023-07-31 07:54] LABS: Albumin Globulin Ratio 1.4 (0.9-2); Albumin Level 3.3 gm/dl (3.4-5.0); BUN Creatinine Ratio 18.2 (10-20); Bilirubin,Total 0.5 mg/dl (0.2-1.0); Calcium 8.4 mg/dl (8.6-10.3); Creatinine Clr Calc Pharmacy 86.3 ml/min; Est GFR (Non-African American) 86.3 ml/min; Globulin 2.3 gm/dl (2.5-4.0); Magnesium 1.9 mg/dl (1.7-2.4); Phosphorus 2.9 mg/dl (2.5-4.9); Potassium 3.9 mmol/L (3.5-5.1); Total Protein 5.6 gm/dl (6.0-8.3)
--- NOTE | 2023-07-31 13:55 | Discharge Summary ---
Discharge Summary Date of Service July 31, 2023 Notes For Next Care Provider Please ensure close follow up with Oromaxillofacial surgeon Dr Rico Medication Changes From Visit Augmentin 875mg BID x 7 more days Tylenol 1000mg q8h PRN Admission HPI Per Admitting Provider This is a 78-year-old male with PMH of GERD, history of GI bleed 2/2 to peptic ulcer disease last year, h/o provoked DVT in RUE last year, BPH and other medical problems listed below who presents at the direction of his dentist for worsening mouth infection. Patient drives a truck for living and noted worsening pain on the right lower side of his jaw this past Thursday evening. Pain was radiating from his lower molar to the side of his mouth and jaw. Patient called his dentist in [place] who prescribed amoxicillin, which she started yesterday. Pain and swelling continued to progress over the weekend and he was seen in person by his dentist today, who called Dr. Rico and was advised to send the patient to [facility] ED for further evaluation. Per ED provider, Dr. Rico evaluated patient already is recommending IV antibiotics with possible OR on . Patient has been taking some ibuprofen at home due to pain and swelling, which he tries to limit due to history of GI bleed. Pain is currently a 10/10 aching pain. Having some difficulty fully opening his mouth but denies any difficulty swallowing. Unable to chew hard foods due to current swelling and lack of dentition. Denies any shortness of breath. No recent known illness. No fever, chills, lightheadedness, headache, chest pain, shortness of breath, nausea, vomiting, abdominal pain, dysuria, diarrhea or constipation. Admission Exam Per Admitting Provider General Appearance: WD/WN, vitals as above, NAD, sitting up in bed, pleasant, conversing easily Head: normocephalic, atraumatic Eyes: normal inspection, PERRL, conjunctivae normal, anicteric sclerae ENT: external ear and nose normal, + poor dentition, edema and TTP noted intraorally on R buccal region extending to R anterior neck Neck: normal visual inspection, trachea midline, no thyromegaly Respiratory: normal respiratory effort, lungs clear to auscultation, no wheeze, rales, rhonchi. No accessory muscle use Cardiovascular: regular rate, rhythm, no murmur, normal peripheral pulses, no BLE edema. Vessels: no JVD Chest: normal inspection of chest Abdomen/GI: normal bowel sounds, soft, nontender, no hepatosplenomegaly Extremities/Musculoskeletal: no cyanosis or clubbing, extremities motor strength 5/5 Neurologic: PERRL, EOMI, accommodation nl, no face palsy, no dysarthria, CN's II-XI intact bilaterally and moves all extremities Psychiatric: A+Ox3, euthymic affect Skin: no rashes, normal color, warm/dry Principal Dx & Hospital Course #1 = Principal Diagnosis (1) Dental infection: (2) History of peptic ulcer: (3) GERD (gastroesophageal reflux disease): (4) BPH (benign prostatic hyperplasia): Plan This is a 78-year-old male with PMH significant for GERD, history of GI bleed 2/2 to peptic ulcer disease last year, h/o provoked DVT in RUE last year, BPH who presents at the direction of his dentist for worsening mouth infection. Dental Abscess Worsening pain and edema on R lower mouth pain radiating to face and neck No respiratory distress or SOB. Saturating at 98% on room air CT soft tissue mild subcutaneous edema in the right neck without drainable fluid collection or pk lymphadenopathy Dr. Rico saw in ED, recommending admission for IV abx -s/p I&D right mandibular space abscess and removal of the impacted # 32 on 07/29 Treated with IV Unasyn, pain control, soft diet as tolerated Discharged with po Augmentin. Of note, pt had mental status reactions while on tramadol and narcotics, stated he felt "high". Narcotic use for pain was minimized. Anemia hgb decreased slightly from 14.8 to 12.5 on discharge Continue to monitor after discharge Hyperglycemia hgba1c 6.2, dx of prediabetes PCP followup Elevated bilirubin t bili of 1.9 on admission Within normal limits on discharge History of peptic ulcer GERD (gastroesophageal reflux disease) Continue PPI. Avoid nsaids as able in setting of GI bleed in 2022 BPH (benign prostatic hyperplasia) Continue finasteride Discharge Exam General: Alert, oriented. No acute distress Skin: No noted rashes or bruises Psych: Appropriate mood and affect Neuro: No gross deficits HEENT: NC/AT, tender to palpation of right cheek area, no erythema, slight swelling Chest: Nontender to palpation. CV: RRR Resp: Breath sounds clear bilaterally, no increased effort of breathing. Abdomen: Soft, nontender, nondistended. Extremities: No edema in lower extremities bilaterally. Updated Medication List Medication Instructions Recorded Confirmed Type atorvastatin 10 mg tablet 10 mg PO HS 07/28/23 07/28/23 History docusate sodium 100 mg tablet 100 mg PO DAILY 07/28/23 07/28/23 History finasteride 5 mg tablet 5 mg PO DAILY 07/28/23 07/28/23 History pantoprazole 40 mg tablet,delayed 40 mg PO DAILY PRN Constipation 07/28/23 07/28/23 History release hydrocodone 5 mg-acetaminophen 325 1 tab PO Q4H PRN pain #14 tabs 07/30/23 Rx mg tablet ondansetron HCl 8 mg tablet 8 mg PO Q8H PRN nausea and 07/30/23 Rx vomiting #10 tabs acetaminophen 500 mg tablet 1,000 mg (2 x 500 mg) PO Q8H PRN 07/31/23 Rx pain #30 tabs amoxicillin 875 mg-potassium 1 tab PO BID #14 tabs 07/31/23 Rx clavulanate 125 mg tablet Hospital Stay Data Consultations 07/28/23 13:30 ED Decision to Admit Stat 07/28/23 14:55 Consult Oromaxillofacial Surgery Routine Procedures Performed Operation Date: 07/29/23 07:00 Actual Procedures p Tooth Removal #32 and removal of Tooth #32(Right) - Shabbir Rico DMD s Right Incision and Drainage of mandibular abscess and Associated Infected Retained impacted Tooth(Right) - Shabbir Rico DMD Diagnostic Imagining Performed 07/28/23 13:25 CT soft tissue neck w con Stat Soft Tissue Neck CT 07/28/23 13:25 CT soft tissue neck w con CLINICAL HISTORY: R sided oral/facial/neck edema, pain Technique: Axial CT images of the soft tissues of the neck were obtained following intravenous administration of 100 cc of Omnipaque 300. Automated dose lowering techniques and/or adjustment according to patient size were utilized for this exam. Comparison: None available at the time of this dictation. Findings: There are no masses or inflammatory changes seen within the soft tissues of the neck. The oropharynx, hypopharynx, larynx, and trachea are patent. No enlarged lymph nodes are seen. The parotid glands, submandibular glands, and thyroid gland are unremarkable. Imaged portions of the brain parenchyma are unremarkable. The paranasal sinuses and mastoid air cells are normal in appearance. Impression: Mild subcutaneous edema in the right neck without drainable fluid collection or pk lymphadenopathy. ACT 112: Negative or not required by law. Electronically signed by: Juan Oreilly M.D. 07/28/2023 3:01 PM Chest X-Ray 07/28/23 13:30 XR chest 1V portable HISTORY: 78 years-old Male preop preoperative exam. No acute chest complaints COMPARISON: None TECHNIQUE: AP view the chest FINDINGS: Cardiomediastinal and hilar silhouettes are within normal limits. No pneumothorax, pleural effusion or overt pulmonary edema. Moderate hemidiaphragm elevation with bibasilar densities favoring atelectasis. Bones appear grossly intact. IMPRESSION: Mild right hemidiaphragm elevation with bibasilar atelectasis. ACT 112: Negative or not required by law. The above report was generated using voice recognition software. It may contain grammatical, syntax or spelling errors. Electronically signed by: Corona Grimm M.D. 07/28/2023 1:56 PM Discharge Instructions Given to Patient (Per Discharging Provider) ADDITIONAL ACTIVITY RECOMMENDATIONS: RETURN TO WORK RELEASE [employer] 1945 [place] was admitted to the [facility] for an acute facial infection. He under went an incision and drainage on July 28. I suggested he take off work until August 03, 2023. He may return to full activities on August 02 without restrictions. If you have any questions please call Dr Rico at [phone] Thank you Shabbir Rico DMD [facility] mft * [place] teeth after every meal. It is very important to keep your mouth clean to prevent infection. * Starting tonight rinse with the Peridex as directed then 2 x a day * it is very important to keep well hydrated, this prevents fever and possible dry socket pain SPECIAL CARE INSTRUCTIONS: *It is not uncommon that between day 2-4 that your swelling will be at its worst this is very normal, do not be alarmed. * Keep ice on the side of your face for the next 24 to 36 hours. This will help keep the swelling down. * After 36 hours, apply heat (hot water bottle or heating pad) for the next two days, as often as possible. * Tomorrow start rinsing your mouth with 1/2 teaspoon salt in 8 ounces warm water. This rinse should be used every 4-6 hours. * You may experience slight nausea. To prevent this, never take your medication on an empty stomach. If nauseated, take small sips of wayne charlie until you feel better; then you may start on applesauce and toast. * Some swelling is common. It should gradually decrease within 4-5 days. * A certain amount of bleeding is to be expected. It is often possible to control mild oozing by placing folded gauze over the area and biting down for 30 minutes. If you are unable to control excessive bleeding, call Dr Rico at [phone] * You may experience some discomfort for a few days. If pain or swelling increases, Call Dr Rico * Return to the office for a follow up check up on: August 12 at 11 am * office address--[address] phone # [phone] Total Time Total Time Spent Total Time Spent (In Minutes): > 30 minutes
== END 2023-07-31 15:19 | disposition home or self-care (01) | DRG 137 ==
LOC: ED 12:46 → 2N 14:55